=== PATIENT | male | born 1940 | race Caucasian/White ===

== ENCOUNTER 2016-09-16 16:10 | Emergency (ER) | payer MEDICARE, OTHER ==
[~2016-09-16] VITALS: Ht 172.7 cm; Wt 86.3 kg
[~2016-09-16 16:10] MED LIST: /AUGM875TA; No home medications
[2016-09-16] MEDS ORDERED: LIDOCAINE 2% MDV 20 ML VIAL SC ONE (17:15)
--- NOTE | 2016-09-16 17:22 | REP ---
RIGHT 1ST DIGIT: Four views of the right first digit are performed. There is cortical irregularity at the distal aspect of the proximal phalanx. I suspect this represents an old fracture. There is no other evidence of acute fracture or dislocation. There are moderate degenerative changes of the interphalangeal joint. Signed by Porter Abebe MD 09/16/2016 06:00 P
[2016-09-16] MEDS ORDERED: KEFL500C17 PO (18:05)
[2016-09-16 18:11] VITALS: BP 142/81
[2016-09-16] MEDS ORDERED: ADACEL/BOOSTRIX VACCINE (DIPHTH/PERTUSS/ACELL/TETANUS)0.5ML SYR (90715) IM ONE (18:15)
[2016-09-16] MEDS ORDERED: CEPHALEXIN 500 MG CAP PO ONE (18:15)
== END 2016-09-16 18:20 | disposition home or self-care (01) ==
LOC: M ED 16:10
DX: S61.011A Laceration without foreign body of right thumb without damage to nail, initial encounter (principal); W29.0XXA Contact with powered kitchen appliance, initial encounter; Y92.89 Other specified places as the place of occurrence of the external cause; Y93.89 Activity, other specified; Y99.0 Civilian activity done for income or pay; J67.0 Farmer's lung; R51 Headache; M54.9 Dorsalgia, unspecified

== ENCOUNTER → 2017-09-29 | Outpatient (REF) | payer MEDICARE, OTHER ==
[2017-09-29 17:48] LABS: BASO # 0.1 10^3/uL (0.0-0.2); BASO % 0.6 % (0.0-1.0); EOS # 0.3 10^3/uL (0.0-0.50); EOS % 2.8 % (0.0-3.0); HEMATOCRIT 44.8 % (42.0-52.0); HEMOGLOBIN 15.3 g/dl (13.5-17.5); IMMATURE GRANULOCYTE % 0.4 % (0-3.0); LYMPH % 20.8 % (24.0-44.0); MEAN CORPUSCULAR HEMOGLOBIN 30.2 pg (27.0-33.0); MEAN CORPUSCULAR HGB CONC 34.2 g/dl (32.0-36.5); MEAN CORPUSCULAR VOLUME 88.5 fl (80.0-96.0); MONO # 1.2 10^3/uL (0.0-0.8); MONO % 12.6 % (0.0-5.0); NEUTROPHILS # 5.9 10^3/uL (1.8-7.7); NEUTROPHILS % 62.8 % (36.0-66.0); PLATELET COUNT, AUTOMATED 241 10^3/uL (150-450); RED BLOOD COUNT 5.06 10^6/uL (4.30-6.10); RED CELL DISTRIBUTION WIDTH 12.6 % (11.5-14.5); WHITE BLOOD COUNT 9.5 10^3/uL (4.0-10.0)
[2017-09-29 17:59] LABS: ALBUMIN 3.8 GM/DL (3.2-5.2); ALBUMIN/GLOBULIN RATIO 1.15 (1.00-1.93); ALKALINE PHOSPHATASE 45 U/L (45-117); ALT/SGPT 26 U/L (12-78); ANION GAP 8 MEQ/L (8-16); AST/SGOT 30 U/L (7-37); BILIRUBIN,TOTAL 0.5 MG/DL (0.2-1.0); BLOOD UREA NITROGEN 18 MG/DL (7-18); CALCIUM LEVEL 9.2 MG/DL (8.8-10.2); CARBON DIOXIDE LEVEL 26 MEQ/L (21-32); CHLORIDE LEVEL 106 MEQ/L (98-107); CREATININE FOR GFR 0.86 MG/DL (0.70-1.30); GLOMERULAR FILTRATION RATE > 60.0 (>42); GLUCOSE, FASTING 98 MG/DL (70-100); MAGNESIUM LEVEL 2.3 MG/DL (1.8-2.4); PHOSPHORUS LEVEL 2.9 MG/DL (2.5-4.9); POTASSIUM SERUM 4.2 MEQ/L (3.5-5.1); SODIUM LEVEL 140 MEQ/L (136-145); TOTAL PROTEIN 7.1 GM/DL (6.4-8.2)
[2017-09-29 18:48] LABS: ERYTHROCYTE SEDIMENTATION RATE 21 mm/hr (0-20)
== END ==
LOC: M LAB REF 17:16
DX: R25.2 Cramp and spasm (principal)
CPT/HCPCS: 83735

== ENCOUNTER → 2017-10-27 | Outpatient (CLI) | payer MEDICARE, OTHER ==
[2017-10-27 19:26] LABS: ALBUMIN/GLOBULIN RATIO 1.18 (1.00-1.93); ALKALINE PHOSPHATASE 49 U/L (45-117); ALT/SGPT 23 U/L (12-78); ANION GAP 10 MEQ/L (8-16); AST/SGOT 30 U/L (7-37); BILIRUBIN,TOTAL 0.4 MG/DL (0.2-1.0); BLOOD UREA NITROGEN 20 MG/DL (7-18); C REACTIVE PROTEIN QUANTITATIV 1.88 MG/DL (0.00-0.30); CALCIUM LEVEL 9.4 MG/DL (8.8-10.2); CARBON DIOXIDE LEVEL 25 MEQ/L (21-32); CHLORIDE LEVEL 105 MEQ/L (98-107); GLOMERULAR FILTRATION RATE > 60.0 (>42); GLUCOSE, FASTING 77 MG/DL (70-100); POTASSIUM SERUM 4.6 MEQ/L (3.5-5.1); SODIUM LEVEL 140 MEQ/L (136-145); TOTAL PROTEIN 7.4 GM/DL (6.4-8.2)
[2017-10-27 20:09] LABS: BASO # 0.1 10^3/uL (0.0-0.2); BASO % 0.6 % (0.0-1.0); EOS # 0.3 10^3/uL (0.0-0.50); EOS % 3.2 % (0.0-3.0); HEMOGLOBIN 15.2 g/dl (13.5-17.5); IMMATURE GRANULOCYTE % 0.4 % (0-3.0); LYMPH # 2.4 10^3/uL (1.5-4.5); LYMPH % 23.2 % (24.0-44.0); MEAN CORPUSCULAR HEMOGLOBIN 29.3 pg (27.0-33.0); MEAN CORPUSCULAR VOLUME 88.6 fl (80.0-96.0); MONO # 1.4 10^3/uL (0.0-0.8); MONO % 13.8 % (0.0-5.0); NEUTROPHILS # 6.1 10^3/uL (1.8-7.7); NEUTROPHILS % 58.8 % (36.0-66.0); PLATELET COUNT, AUTOMATED 287 10^3/uL (150-450); RED BLOOD COUNT 5.19 10^6/uL (4.30-6.10); RED CELL DISTRIBUTION WIDTH 12.5 % (11.5-14.5); WHITE BLOOD COUNT 10.3 10^3/uL (4.0-10.0)
[2017-10-27 22:17] LABS: ERYTHROCYTE SEDIMENTATION RATE 19 mm/hr (0-20)
== END ==
LOC: M SMT 15:33
DX: M19.012 Primary osteoarthritis, left shoulder (principal); Z79.899 Other long term (current) drug therapy
CPT/HCPCS: 80053

== ENCOUNTER → 2017-12-05 | Outpatient (REF) | payer MEDICARE, OTHER ==
[2017-12-09 13:06] LABS: RHEUMATOID FACTOR QUANT < 10.0 IU/ML (<15.0)
[2017-12-10 16:17] LABS: ANTINUCLEAR ANTIBODIES DIRECT Negative (Negative)
== END ==
LOC: M LAB REF 12:20
DX: M25.50 Pain in unspecified joint (principal); R79.82 Elevated C-reactive protein (CRP)
CPT/HCPCS: 86038

== ENCOUNTER → 2017-12-05 | Outpatient (REF) | payer MEDICARE, OTHER ==
[2017-12-05 17:58] LABS: C REACTIVE PROTEIN QUANTITATIV 1.45 MG/DL (0.00-0.30)
[2017-12-08 00:08] LABS: Lyme Disease IgG/IgM Antibodie <0.91 ISR (0.00-0.90); Lyme Disease IgM Ab Quantitati <0.80 index (0.00-0.79)
== END ==
LOC: M LAB REF 17:06
DX: M25.50 Pain in unspecified joint (principal)
CPT/HCPCS: 86140

== ENCOUNTER 2017-12-12 11:06 | Day surgery (SDC) | payer MEDICARE, OTHER ==
[~2017-12-12 11:06] MED LIST changes: -/AUGM875TA; +MIDAZOLAM INJ 2 MG/2 ML VIAL (J2250) As Ordered; -No home medications; +fentaNYL 100 MCG/2 ML INJECTION (J3010) As Ordered
[2017-12-12] MEDS: LIDOCAINE 3.5 % 1ML OPHTH TOPICAL GEL OU (12:35)
[2017-12-12] MEDS: POVIDONE-IODINE 5% OPHTH PREP SOL 30ML As Ordered (15:28)
[2017-12-12] MEDS: LIDOCAINE 2% W/EPIN INJ 20ML **PRES FREE As Ordered (16:00)
[2017-12-12] MEDS: ERYTHROMYCIN OPHTH OINT As Ordered (16:44)
[2017-12-12] MEDS ORDERED: ACETAMINOPHEN TAB 650MG DOSE (2X325MG) As Ordered (17:03)
[2017-12-12] MEDS: ACETAMINOPHEN TAB 650MG DOSE (2X325MG) PO (17:05)
[2017-12-12] MEDS ORDERED: ONDANSETRON 4MG/2ML VIAL (J2405) IV (17:15)
[2017-12-12] MEDS ORDERED: LR 1,000 ML IV (17:15)
== END 2017-12-12 17:38 | disposition home or self-care (01) ==
LOC: M SDC 11:06
DX: C69.01 Malignant neoplasm of right conjunctiva (principal); K21.9 Gastro-esophageal reflux disease without esophagitis; M15.0 Primary generalized (osteo)arthritis; R51 Headache; R00.0 Tachycardia, unspecified; J67.0 Farmer's lung; Z79.82 Long term (current) use of aspirin; Z96.1 Presence of intraocular lens
CPT/HCPCS: 68115

== ENCOUNTER → 2018-01-16 | Outpatient (REF) | payer MEDICARE, OTHER ==
[2018-01-19 00:30] LABS: CYCLIC CITRULLINATED PEPTIDE 8 units (0-19)
== END ==
LOC: M LAB REF 16:53
DX: M25.50 Pain in unspecified joint (principal)

== ENCOUNTER → 2018-01-16 | Outpatient (CLI) | payer MEDICARE, OTHER | LOC: M WUC 14:49 | DX: M25.742 Osteophyte, left hand (principal); M25.542 Pain in joints of left hand | CPT/HCPCS: 86140 ==

== ENCOUNTER 2018-03-01 14:13 | Inpatient (IN) | payer MEDICARE, OTHER ==
[~2018-03-01] VITALS: Ht 170.2 cm; Wt 76.3 kg
[~2018-03-01 14:13] MED LIST changes: +/AUGM875TA; +ASPI81TA85 PO; +GLUC500C5 PO; +KEFL500C17 PO; +MAGN400C2 PO; -MIDAZOLAM INJ 2 MG/2 ML VIAL (J2250) As Ordered; +MULTCAP PO; +No home medications; +VITA500C24 PO; -fentaNYL 100 MCG/2 ML INJECTION (J3010) As Ordered
[2018-03-01 14:41] LABS: BASO # 0.1 10^3/uL (0.0-0.2); BASO % 0.8 % (0.0-1.0); EOS # 0.3 10^3/uL (0.0-0.50); EOS % 3.3 % (0.0-3.0); HEMATOCRIT 40.2 % (42.0-52.0); HEMOGLOBIN 13.5 g/dl (13.5-17.5); MEAN CORPUSCULAR HEMOGLOBIN 28.1 pg (27.0-33.0); MEAN CORPUSCULAR HGB CONC 33.6 g/dl (32.0-36.5); MEAN CORPUSCULAR VOLUME 83.8 fl (80.0-96.0); MONO # 1.4 10^3/uL (0.0-0.8); MONO % 14.4 % (0.0-5.0); NEUTROPHILS # 5.8 10^3/uL (1.8-7.7); NEUTROPHILS % 60.1 % (36.0-66.0); PLATELET COUNT, AUTOMATED 364 10^3/uL (150-450); WHITE BLOOD COUNT 9.6 10^3/uL (4.0-10.0)
[2018-03-01 15:14] LABS: ALBUMIN 3.4 GM/DL (3.2-5.2); ALT/SGPT 26 U/L (12-78); BILIRUBIN,DIRECT 0.2 MG/DL (0.0-0.2); BILIRUBIN,TOTAL 0.5 MG/DL (0.2-1.0); BLOOD UREA NITROGEN 25 MG/DL (7-18); CALCIUM LEVEL 9.4 MG/DL (8.8-10.2); CARBON DIOXIDE LEVEL 24 MEQ/L (21-32); CHLORIDE LEVEL 105 MEQ/L (98-107); CPK CREATINE PHOSPHOKINASE 39 U/L (39-308); CREATININE FOR GFR 0.93 MG/DL (0.70-1.30); GLOMERULAR FILTRATION RATE > 60.0 (>42); GLUCOSE, FASTING 105 MG/DL (70-100); MB/CK RELATIVE INDEX 3.08 (< OR =4); POTASSIUM SERUM 4.4 MEQ/L (3.5-5.1); SODIUM LEVEL 136 MEQ/L (136-145); TOTAL PROTEIN 7.6 GM/DL (6.4-8.2); TROPONIN I 0.02 NG/ML (< 0.10)
--- NOTE | 2018-03-01 15:18 | REP ---
CT Head without contrast HISTORY: Numbness COMPARISON: None Areas of decreased attenuation are present in the periventricular and subcortical white matter. This represents small-vessel ischemic disease. There is no intraparenchymal hemorrhage, acute infarct, mass or midline shift. The ventricular system and cortical sulci as well as subarachnoid space in the posterior fossa are dilated consistent with moderate volume loss. There is no extra cerebral collection. There is no fracture. The visualized sinuses are clear. IMPRESSION: 1. Small vessel ischemic disease. 2. Moderate volume loss. Electronically Signed by Geo Zambrano MD 03/01/2018 03:09 P
--- NOTE | 2018-03-01 17:52 | REP ---
MRI BRAIN WITHOUT CONTRAST: MRI brain performed with multiple axial images obtained. There is moderate atrophy. There is no midline shift or mass effect. ADC and DWI images demonstrate evidence of an oval acute lacunar infarct in the posterior left thalamus. This measures approximately 9 x 4 mm. No other acute findings are seen. There are patchy periventricular hyperintensities bilaterally compatible with chronic small vessel ischemic changes and gliosis. Brainstem and cerebellum are unremarkable. VII/VIII cranial nerve complexes are grossly unremarkable. Globes are intact. Visualized paranasal sinuses demonstrate no abnormal signal. IMPRESSION: Chronic atrophy and periventricular small vessel ischemic changes and gliosis. Acute lacunar infarct in the posterior left thalamus. Electronically Signed by Porter Abebe MD 03/01/2018 07:58 P
--- NOTE | 2018-03-01 17:56 | REP ---
MRA BRAIN: MRA brain was performed utilizing 3D time of flight imaging with MIP reconstruction images. There is a dominant left vertebral artery. Basilar artery is widely patent with no stenosis. There does appear to be mild to moderate narrowing of the P2 segment of he left posterior cerebral artery. Intracranial carotid vessels are widely patent as are the anterior and middle cerebral arteries bilaterally. The anterior communicating arteries are patent. There is no evidence of aneurysm or AVN. IMPRESSION: Mild to moderate narrowing of the P2 segment of the left posterior cerebral artery. Electronically Signed by Porter Abebe MD 03/01/2018 07:58 P
[2018-03-01] MEDS ORDERED: ASPIRIN 325 MG TAB PO ONE (18:30)
[2018-03-01] MEDS ORDERED: TYLE650T35 PO (18:43)
[2018-03-01] MEDS ORDERED: OMEP20TA PO (18:43)
[2018-03-01] MEDS ORDERED: MAGN250T7 PO (18:43)
[2018-03-01] MEDS ORDERED: GLUC1CAP10 PO (18:43)
[2018-03-01] MEDS ORDERED: ZITHTAB PO (18:43)
[2018-03-01] MEDS ORDERED: NAPR-885 PO (18:43)
[2018-03-01] MEDS ORDERED: ERYT5OPO OD (18:43)
[2018-03-01] MEDS ORDERED: AUGM500T34 PO (18:53)
[2018-03-01 19:06] LABS: INR 1.11; PROTHROMBIN TIME 14.5 SECONDS (12.1-14.4)
--- NOTE | 2018-03-01 20:17 | HPE ---
DATE OF ADMISSION: 03/01/2018 CHIEF COMPLAINT: Right-sided facial numbness, tingling and right arm numbness and tingling. HISTORY OF PRESENT ILLNESS: This is a 78-year-old gentleman with a significant past medical history of arthritis and recent upper respiratory infection (URI) who presents with chief complaint of one day history of right facial numbness and tingling as well as right arm numbness and tingling. Patient reports that yesterday morning when he woke up his entire right side of his face felt extremely numb and tingling and the posterior aspect of his right arm did as well in addition to his right palm. This was a completely new sensation for him. Because he was at home with his disabled , he was not able to come home and had persistent symptoms for several hours, but did not seek medical attention. He finally decided to come to the emergency room to have it further evaluated today. He denies any prior history of myocardial infarction (NH), stroke in the past. He reports he used to be on aspirin but his primary care physician Dr. Sebastian recently stopped it because she started him on other syndrome of nonsteroidal anti-inflammatory drug (NSAID) for arthritic pain and therefore stopped his aspirin. No reported history of diabetes. Patient reports that his symptoms have now resolved and he no longer has any symptoms that he knows of. REVIEW OF SYSTEMS: Negative in 14 out of 14 systems except patient notes that he recently is recovering from a URI and has completing a course of Augmentin. PAST MEDICAL HISTORY: Arthritis. Recent URI, on Augmentin. PAST SURGICAL HISTORY: Tonsillectomy at 7 years old. Right eye surgery, on eye drops. MEDICATIONS: Patient is on: - Tylenol as needed for arthritis - Naprosyn 500 mg twice a day - glucosamine chondroitan 2 capsules daily - magnesium 250 mg daily - Augmentin 500 mg twice a day - vitamin C 1000 mg daily - erythromycin ointment one drop OD three times a day - omeprazole 20 mg by mouth daily ALLERGIES: No known drug allergies. SOCIAL HISTORY: Patient lives with his who is disabled and he takes care of her. 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 No smoking, alcohol or drugs. FAMILY HISTORY: No family history of CVA. Patient's father of cancer at age 87. PHYSICAL EXAMINATION: On exam, patient's blood pressure currently controlled at 133/75. Heart rate of 71. Saturating at 96% on room air. GENERAL: He is in no acute distress and is a very pleasant elderly gentleman. HEENT: Oropharynx clear. Neck supple. Cranial nerves II-XII intact. Smile is symmetric. CARDIOVASCULAR: Regular rate and rhythm. No murmurs, rubs or gallops. LUNGS: Clear to auscultation bilaterally. ABDOMEN: Soft, nontender. Nondistended. Positive bowel sounds. EXTREMITIES: No clubbing, cyanosis or edema. NEUROLOGICAL: Patient is alert and oriented times three. Follows simple commands. No focal neurological deficits. His main muscle testing is 5/5 throughout. His sensation is intact to light touch throughout. He follow simple commands. SKIN: Intact. PSYCHIATRIC: Mood stable. LABS: Reveal CBC is unremarkable with a white count of 9.6, platelets of 364 and hemoglobin of 13.5. Chemistry is unremarkable with a creatinine of 0.93. IMAGING: Reveals a brain MRI that shows chronic atrophy and periventricular small vessel ischemic changes and gliosis. There is an acute lacunar infarct in the posterior left thalamus. Patient also had a head CT that shows small vessel ischemic disease and moderate volume loss. ASSESSMENT AND PLAN: This is a 78-year-old gentleman with history of arthritis, otherwise pretty healthy. He came in with one day history of right-sided facial and arm and palm numbness and tingling. Found to have an acute lacunar infarction in posterior left thalamus. PROBLEMS: 1. Cerebrovascular accident (CVA) secondary to lacunar infarction in the posterior left thalamus. Neurology has been consulted. Patient is being admitted for neurologic workup. He is outside the window for tPA. We are placing him on telemetry and obtaining an echo and carotid ultrasound. Will check a fasting lipid profile in the morning and an A1c. He has being started on a statin with Lipitor 20 mg as well as aspirin 325 mg daily. Physical therapy (PT)/occupational therapy (OT), speech therapy will evaluate the patient. At this time he does not appear to have any neurologic deficits. I will start him on a regular diet as it appears his swallowing function is intact. His blood pressures are currently controlled, but we will allow for permissive hypertension. Neurology will see the patient tomorrow. He will need continuous telemetry and monitoring to evaluate for any atrial fibrillation. 2. History of arthritis. At this time, I am going to hold his NSAIDs and he is continuing on an aspirin 325 daily.
[2018-03-01 20:50] VITALS: BP 127/83
[2018-03-01] MEDS: ATORVASTATIN 20 MG TAB PO SCH (21:27)
[2018-03-01] MEDS: AUGMENTIN 500 MG TAB PO SCH (21:27)
[2018-03-01] MEDS: ERYTHROMYCIN OPHTH OINT OD SCH (21:27)
[2018-03-02] VITALS (7 sets, daily range): BP systolic 99–145; BP diastolic 57–87
--- NOTE | 2018-03-02 02:55 | ECGEPIP ---
Stationary ECG Study [facility] - ED Test Date: 2018-03-01 Pat Name: ROYA MCCAIN Department: Room: - Gender: M Regrinder: TC : 1940 Requested By: Noni Pastrana Order Number: [id number] Reading MD: Jason Brandt Measurements Intervals [place] Rate: 71 P: 18 DE: 245 QRS: -50 QRSD: 147 T: 130 QT: 463 QTc: 505 Interpretive Statements SINUS RHYTHM WITH FIRST DEGREE AV BLOCK LEFT AXIS DEVIATION LEFT BUNDLE BRANCH BLOCK SIMILAR TO 06/19/15 Electronically Signed On 03-02-2018 2:55:17 EST by Jason Brandt
[2018-03-02 06:28] LABS: HEMATOCRIT 39.5 % (42.0-52.0); MEAN CORPUSCULAR HEMOGLOBIN 27.6 pg (27.0-33.0); MEAN CORPUSCULAR HGB CONC 32.9 g/dl (32.0-36.5); MEAN CORPUSCULAR VOLUME 83.9 fl (80.0-96.0); PLATELET COUNT, AUTOMATED 311 10^3/uL (150-450); RED BLOOD COUNT 4.71 10^6/uL (4.30-6.10); WHITE BLOOD COUNT 6.8 10^3/uL (4.0-10.0)
[2018-03-02 06:51] LABS: BLOOD UREA NITROGEN 24 MG/DL (7-18); CALCIUM LEVEL 9.3 MG/DL (8.8-10.2); CARBON DIOXIDE LEVEL 23 MEQ/L (21-32); CHLORIDE LEVEL 107 MEQ/L (98-107); CHOLESTEROL LEVEL 126 MG/DL (<200); CHOLESTEROL RISK RATIO 4.666 (<5); CREATININE FOR GFR 0.78 MG/DL (0.70-1.30); GLOMERULAR FILTRATION RATE > 60.0 (>42); GLUCOSE, FASTING 93 MG/DL (70-100); HDL CHOLESTEROL 27 MG/DL (>40); LDL CHOLESTEROL 76 MG/DL (<100); NON-HDL-C 99 MG/DL; SODIUM LEVEL 138 MEQ/L (136-145); TRIGLYCERIDES LEVEL 115 MG/DL (<150)
--- NOTE | 2018-03-02 07:07 | IPNPDOC ---
Text Note Date of Service The patient was seen on 03/02/18. NOTE SUBJECTIVE: Patient seen and examined at bedside. Complains of bilateral shoulder and hip pain which he attributes to his arthritis. States he neurologic symptoms have improved including his right palm numbness and facial numbness. He also states he tested positive for flu and was receiving treatment. Contacted his pharmacy - [facility] on [address] - no treatment for influenza prescribed, only Augmentin. OBJECTIVE: GENERAL: NAD, lying comfortably in bed HEENT: NC/AT, EOMI, PERRL CARDIOVASCULAR: +S1S2, RRR LUNGS: CTA B/L ABDOMEN: Soft, NT, +BS, ND EXTREMITIES: no edema NEUROLOGICAL: no gross focal deficits PSYCHIATRIC: AAOx3 ASSESSMENT AND PLAN: This is a 78-year-old gentleman with history of arthritis presents for one day history of right-sided facial, right arm and palm numbness and tingling. Found to have an acute lacunar infarction in posterior left thalamus. #CVA - lacunar infarction in the posterior left thalamus - follow as per neuro - assistance appreciated - echo pending report - telemetry - carotid ultrasound WNL - lipid profile, A1C - statin/ASA - PT/OT/ST #dyslipidemia - on statin therapy #glucose intolerance - A1C 6.0 #recent URI - was previously taking Augmentin #arthritis #DVT prophylaxis Addendum: Early evening patient was found to be in VT. Notified by neurology of findings. Labs ordered, transfer to PCU. Patient asymptomatic and VSS. Discussed with patient and , apparently he has history of arrhythmia noted on routine ECG at PCP, and followed up with Dr. Bates. Last visit was December 2017. Discussed with Dr. Ortega, consultation pending. VS,Dustinbone, I+O VS, Fishbone, I+O Laboratory Tests 03/01/18 14:30 Red Blood Count 4.80, Mean Corpuscular Volume 83.8, Mean Corpuscular Hemoglobin 28.1, Mean Corpuscular Hemoglobin Concent 33.6, Red Cell Distribution Width 13.3, Neutrophils (%) (Auto) 60.1, Lymphocytes (%) (Auto) 21.0 L, Monocytes (%) (Auto) 14.4 H, Eosinophils (%) (Auto) 3.3 H, Basophils (%) (Auto) 0.8, Neutrophils # (Auto) 5.8, Lymphocytes # (Auto) 2.0, Monocytes # (Auto) 1.4 H, Eosinophils # (Auto) 0.3, Basophils # (Auto) 0.1 03/02/18 05:42 Red Blood Count 4.71, Mean Corpuscular Volume 83.9, Mean Corpuscular Hemoglobin 27.6, Mean Corpuscular Hemoglobin Concent 32.9, Red Cell Distribution Width 13.3 Vital Signs Date Time Temp Pulse Resp B/P (MAP) Pulse Ox O2 Delivery O2 Flow Rate FiO2 03/02/18 06:00 97.2 64 15 113/60 (77) 100 Room Air I&O- Last 24 Hours up to 6 AM 03/02/18 06:00 Intake Total 300 ml Output Total 275 ml Balance 25 ml TTIO SOTO MD Mar 02, 2018 07:07
--- NOTE | 2018-03-02 08:22 | REP ---
Duplex carotid sonography: History: Thalamic stroke workup. Findings: Antegrade flow was observed in both vertebral arteries. Right carotid: Right common carotid artery is unremarkable on two-dimensional scanning. No significant plaquing is seen in the bulb, proximal ICA or proximal ECA on the right side. Color flow and spectral Doppler interrogation are unremarkable. Velocity chart right carotid: Right CCA PSV 78 cm/s Right ICA PSV 60 EDC 18 Right ECA PSV 53 Right ICA/CCA ratio normal 0.8. Impression: No significant plaquing visible. No evidence of stenosis. Left carotid: The left common carotid artery is unremarkable as well on two-dimensional scanning. There is minimal plaquing in the left carotid bulb. Color flow and spectral Doppler interrogation are unremarkable on the left. Velocity chart left carotid: Left CCA PSV 123 cm/s Left ICA PSV 55 EDC 6 Left ECA PSV 70 Left ICA/CCA ratio normal 0.5. Impression: 0-15% category narrowing in the left ICA. Electronically Signed by Toby Lew MD 03/02/2018 09:30 A
[2018-03-02] MEDS: OMEPRAZOLE 20 MG CAP PO SCH (10:06)
[2018-03-02] MEDS: ASCORBIC ACID 500 MG TAB PO SCH (10:06)
[2018-03-02] MEDS: AUGMENTIN 500 MG TAB PO SCH ×2 (10:06→20:35)
[2018-03-02] MEDS: ASPIRIN 325 MG TAB PO SCH (10:06)
[2018-03-02] MEDS: ERYTHROMYCIN OPHTH OINT OD SCH ×3 (10:07→23:00)
--- NOTE | 2018-03-02 12:27 | NUR ---
Speech and language evaluation conducted at bedside on 03/02/18 secondary to stroke. Based on the results of the assessment, speech and language skills are within functional limits and no further speech therapy is recommended at this time. Addendum: 03/02/18 at 1229 by AQUILES LUZ Amended: Links added.
[2018-03-02 18:18] LABS: BASO # 0.1 10^3/uL (0.0-0.2); BASO % 0.9 % (0.0-1.0); EOS # 0.3 10^3/uL (0.0-0.50); EOS % 3.7 % (0.0-3.0); HEMATOCRIT 44.6 % (42.0-52.0); HEMOGLOBIN 14.8 g/dl (13.5-17.5); LYMPH # 2.2 10^3/uL (1.5-4.5); LYMPH % 25.2 % (24.0-44.0); MEAN CORPUSCULAR HEMOGLOBIN 27.9 pg (27.0-33.0); MEAN CORPUSCULAR HGB CONC 33.2 g/dl (32.0-36.5); MONO # 1.1 10^3/uL (0.0-0.8); MONO % 12.9 % (0.0-5.0); NEUTROPHILS # 4.9 10^3/uL (1.8-7.7); PLATELET COUNT, AUTOMATED 381 10^3/uL (150-450); RED BLOOD COUNT 5.31 10^6/uL (4.30-6.10); WHITE BLOOD COUNT 8.6 10^3/uL (4.0-10.0)
[2018-03-02 18:49] LABS: ALBUMIN 3.4 GM/DL (3.2-5.2); ALT/SGPT 22 U/L (12-78); BILIRUBIN,TOTAL 0.4 MG/DL (0.2-1.0); BLOOD UREA NITROGEN 27 MG/DL (7-18); CALCIUM LEVEL 9.7 MG/DL (8.8-10.2); CARBON DIOXIDE LEVEL 23 MEQ/L (21-32); CHLORIDE LEVEL 104 MEQ/L (98-107); CPK CREATINE PHOSPHOKINASE 58 U/L (39-308); CREATININE FOR GFR 0.93 MG/DL (0.70-1.30); GLOMERULAR FILTRATION RATE > 60.0 (>42); GLUCOSE, FASTING 117 MG/DL (70-100); MAGNESIUM LEVEL 2.2 MG/DL (1.8-2.4); MB/CK RELATIVE INDEX 2.41 (< OR =4); SODIUM LEVEL 135 MEQ/L (136-145); TOTAL PROTEIN 8.1 GM/DL (6.4-8.2); TROPONIN I < 0.02 NG/ML (< 0.10)
[2018-03-02] MEDS ORDERED: ASPIRIN 325 MG TAB PO SCH (19:00)
[2018-03-02] MEDS: ATORVASTATIN 20 MG TAB PO SCH (20:35)
[2018-03-03] VITALS (8 sets, daily range): BP systolic 105–128; BP diastolic 65–77
[2018-03-03 06:41] LABS: BASO # 0.1 10^3/uL (0.0-0.2); EOS # 0.4 10^3/uL (0.0-0.50); HEMATOCRIT 38.3 % (42.0-52.0); HEMOGLOBIN 12.8 g/dl (13.5-17.5); LYMPH # 1.7 10^3/uL (1.5-4.5); LYMPH % 23.6 % (24.0-44.0); MEAN CORPUSCULAR HEMOGLOBIN 27.6 pg (27.0-33.0); MEAN CORPUSCULAR HGB CONC 33.4 g/dl (32.0-36.5); MEAN CORPUSCULAR VOLUME 82.7 fl (80.0-96.0); MONO # 1.1 10^3/uL (0.0-0.8); MONO % 15.8 % (0.0-5.0); NEUTROPHILS # 3.8 10^3/uL (1.8-7.7); NEUTROPHILS % 53.3 % (36.0-66.0); PLATELET COUNT, AUTOMATED 290 10^3/uL (150-450); RED BLOOD COUNT 4.63 10^6/uL (4.30-6.10); WHITE BLOOD COUNT 7.1 10^3/uL (4.0-10.0)
--- NOTE | 2018-03-03 06:41 | CR ---
DATE OF CONSULTATION: 03/02/2018 REFERRING PHYSICIAN: Dr. Farida Chun REASON FOR CONSULTATION: Right-sided facial and arm numbness, tingling. HISTORY PRESENT ILLNESS: Sid Quijano is a 78-year-old man who had a recent upper respiratory tract infection and has history of arthritis. He developed sudden onset of right-sided facial and arm numbness, tingling on February 28, 2018. There was no speech deficit. There was no weakness or imbalance. The patient has noted tremor of his hands for last 5 years. His tremor is worse with activities. He does not have any trouble walking at his baseline. He denies any headaches or neck pain. He has a history of chronic low back pain for many years. He denies dysphagia, dysarthria, diplopia, urinary incontinence, falls or loss of consciousness. The patient recently stopped taking aspirin in January 2018 as he started Tylenol Arthritis for his joint pain. PAST MEDICAL HISTORY: Osteoarthritis. Recent upper respiratory tract infection. Tonsillectomy. Right eye surgery. HOME MEDICATIONS: - Tylenol Arthritis - Augmentin 500 mg p.o. b.i.d. - omeprazole 20 mg p.o. daily - naproxen 500 mg p.o. b.i.d. p.r.n. - magnesium 250 mg p.o. daily - glucosamine chondroitin 2 capsules daily - erythromycin ointment for eye three times a day ALLERGIES: None. SOCIAL HISTORY: The patient lives with his who is disabled. He takes care of her. 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 FAMILY HISTORY: His father of cancer at age 87. REVIEW OF SYSTEMS: All systems were reviewed and found noncontributory except as mentioned history present illness. PHYSICAL EXAMINATION: Temperature 99.0, pulse 69, respiratory rate 18, blood pressure 99/58, 97% saturation on room air. Heart: Regular rate and rhythm. Lungs: Clear to auscultation. Abdomen: Soft, nontender, nondistended. No pedal edema. No musculoskeletal abnormalities. No rash or signs of meningeal irritation. No ataxia of gait. He has bilateral has action and postural tremor. The patient is awake, alert, oriented to place, person and time. Normal speech comprehension and repetition. Extraocular muscles are intact. No facial weakness. Tongue and uvula are midline. Visual munoz are full to confrontation. Recent and distant memory is intact. 5/5 strength in all four extremities. Deep tendon flexes 2+ throughout. Normal sensation throughout. The patient states that his right-sided facial and arm numbness have significantly improved already. Gait is normal. There is no dysmetria or ataxia. DIAGNOSTIC STUDIES: MRI scan of brain showed an acute left thalamic ischemic lacunar stroke. MRA brain showed mild-moderate left [employer] stenosis. Carotid ultrasound showed 0-15% left ICA stenosis and mild atherosclerosis of right internal carotid artery. His echocardiogram is pending. His telemetry showed wide complex tachycardia for 40 minutes today. I requested Dr. Hong to inform his commutator assembler, Dr. Bates. The patient can have sinus tachycardia with left bundle branch block or ventricular tachycardia. ASSESSMENT: 1. Left thalamic acute lacunar ischemic stroke. 2. 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 3. Mild bilateral carotid artery atherosclerosis. 4. Sinus tachycardia with left bundle branch block versus ventricular tachycardia. PLAN: 1. Aspirin 325 mg by mouth daily. 2. Prilosec 20 mg by mouth daily. 3. Dr. Hong will talk to the patient's commutator assembler about his tachycardia. The patient will be moved to PCU for monitoring. 4. Follow with our office in 2-3 weeks after hospital discharge. His HDL is 99 and LDL 76. He may also likely have benign essential tremor. We will discuss medications as outpatient.
[2018-03-03 07:02] LABS: BLOOD UREA NITROGEN 31 MG/DL (7-18); CALCIUM LEVEL 9.4 MG/DL (8.8-10.2); CARBON DIOXIDE LEVEL 24 MEQ/L (21-32); CHLORIDE LEVEL 105 MEQ/L (98-107); CREATININE FOR GFR 0.88 MG/DL (0.70-1.30); GLOMERULAR FILTRATION RATE > 60.0 (>42); GLUCOSE, FASTING 99 MG/DL (70-100); MAGNESIUM LEVEL 2.2 MG/DL (1.8-2.4); PHOSPHORUS LEVEL 3.1 MG/DL (2.5-4.9); POTASSIUM SERUM 4.1 MEQ/L (3.5-5.1); SODIUM LEVEL 138 MEQ/L (136-145)
--- NOTE | 2018-03-03 09:05 | ECHO ---
DATE OF PROCEDURE: 03/02/2018 REFERRING PHYSICIAN: Dr. Salinas INDICATION: Cerebrovascular accident. HEIGHT: 170 cm. WEIGHT: 81 kg. DIMENSIONS: IVS: 1.5 LV: 4.4 LVPW: 1.5 LA: 4.4 Aorta: 4.5 IVC: 1.7 Mitral E wave velocity 74 E prime septal 5.0 E prime lateral 8.4 FINDINGS: This study is of acceptable technical quality even though the apical views were a times, rather limited. The patient is in sinus rhythm with wide QRS complex and first-degree AV block. Left ventricle is of normal size. There is moderate left ventricular hypertrophy. There is segmental wall motion abnormality involving the whole septum and the adjacent apex which are dyskinetic. I suspect this is most likely due to underlying conductive system disease. Overall ejection fraction is going to be mildly reduced, I estimate EF around 45-50%. On some of the views it appears that it may be even worse, but I still believe that 45-50% is about right. Right ventricle appears normal. Left atrium is moderately enlarged. Right atrium was poorly visualized but grossly appears normal. Aortic valve has three cusps, it is sclerotic, but mobility of the cusp is preserved. Mitral and tricuspid valves appear normal. Pulmonic valve was also reasonably well seen and appears normal. No pericardial effusion is noted. Inferior vena cava is normal size. 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 Ascending aorta, aortic arch and abdominal aorta were not well seen. Doppler interrogation of aortic valve reveals no stenosis and approximately mild to moderate insufficiency. Pressure half-time of aortic insufficiency jet was 480 milliseconds. Mitral valve is functionally competent. There is mild tricuspid insufficiency, estimated pulmonary artery pressure is within normal limits. Evaluation of diastolic function is inconclusive as the A-wave velocity of mitral valve inflow was not documented, but I suspect that the patient most likely has a grade 1 diastolic dysfunction. CONCLUSIONS: 1. Study is of acceptable technical quality. 2. Normal LV size with moderate LVH segmental wall motion abnormalities noted above and overall EF around 45-50%. 3. [id number] aortic insufficiency. 4. Normal central venous pressure and probably normal pulmonary artery pressure. COMMENT: SBE prophylaxis is not recommended. Study is most consistent with hypertensive heart disease and I suspect underlying left bundle branch block. Because of dilated aortic root 4.5 cm and poorly visualized remaining segments of the aorta if not already performed or if not known I would recommend to obtain CT scan of the chest to look at the remaining aortic segments. MTDD
[2018-03-03] MEDS: ASCORBIC ACID 500 MG TAB PO SCH (09:24)
[2018-03-03] MEDS: OMEPRAZOLE 20 MG CAP PO SCH (09:24)
[2018-03-03] MEDS: ERYTHROMYCIN OPHTH OINT OD SCH ×3 (09:24→20:03)
[2018-03-03] MEDS: AUGMENTIN 500 MG TAB PO SCH ×2 (09:24→20:03)
[2018-03-03] MEDS: ASPIRIN 325 MG TAB PO SCH (09:24)
--- NOTE | 2018-03-03 12:06 | IPNPDOC ---
Date Seen The patient was seen on 03/03/18. Progress Note SUBJECTIVE: Patient tells me that he still has some mild numbness which is residual from his presentation however for the most part it has resolved he otherwise has no specific complaints was completely asymptomatic during an episode of tachycardia yesterday afternoon. OBJECTIVE: GENERAL: NAD, lying comfortably in bed HEENT: NC/AT, EOMI, PERRL CARDIOVASCULAR: +S1S2, RRR he is not tachycardic at this time LUNGS: CTA B/L ABDOMEN: Soft, NT, +BS, ND EXTREMITIES: no edema NEUROLOGICAL: no gross focal deficits PSYCHIATRIC: AAOx3 ASSESSMENT AND PLAN: This is a 78-year-old gentleman with history of arthritis presents with acute lacunar infarction in posterior left thalamus. #Acute CVA - lacunar infarction in the posterior left thalamus, neurology help greatly appreciated carotid duplex negative he did have an episode of tachycardia rhythm which is unclear to me I'm suspicious for SVT as a possible etiology cardiology consult has been placed will await further recommendations from them especially considering potential need for anticoagulation. For the time being he is on aspirin and statin. He will require outpatient follow up in neurology office in 2-3 weeks. A1c and TSH are unremarkable #dyslipidemia - on statin therapy #recent URI - was previously taking Augmentin will follow PT and OT changes to complete his outpatient course #arthritis stable chronic #DVT prophylaxis Disposition: Pending PT OT cardiology VS, I&O, 24H, Fishbone Vital Signs/I&O Vital Signs Date Time Temp Pulse Resp B/P (MAP) Pulse Ox O2 Delivery O2 Flow Rate FiO2 03/03/18 08:08 97.9 71 18 126/77 (93) 96 Room Air I&O- Last 24 Hours up to 6 AM 03/03/18 06:00 Intake Total 480 ml Output Total 501 ml Balance -21 ml Laboratory Data 24H LABS Laboratory Tests 2 03/02/18 18:11: Immature Granulocyte % (Auto) 0.3, White Blood Count 8.6, Red Blood Count 5.31, Hemoglobin 14.8, Hematocrit 44.6, Mean Corpuscular Volume 84.0, Mean Corpuscular Hemoglobin 27.9, Mean Corpuscular Hemoglobin Concent 33.2, Red Cell Distribution Width 13.4, Platelet Count 381, Neutrophils (%) (Auto) 57.0, Lymphocytes (%) (Auto) 25.2, Monocytes (%) (Auto) 12.9H, Eosinophils (%) (Auto) 3.7H, Basophils (%) (Auto) 0.9, Neutrophils # (Auto) 4.9, Lymphocytes # (Auto) 2.2, Monocytes # (Auto) 1.1H, Eosinophils # (Auto) 0.3, Basophils # (Auto) 0.1, Nucleated Red Blood Cells % (auto) 0.0, Anion Gap 8, Glomerular Filtration Rate > 60.0, Blood Urea Nitrogen 27H, Creatinine 0.93, Sodium Level 135L, Potassium Level 4.0, Chloride Level 104, Carbon Dioxide Level 23, Calcium Level 9.7, Aspartate Amino Transf (AST/SGOT) 36, Alanine Aminotransferase (ALT/SGPT) 22, Total Creatine Kinase 58, Alkaline Phosphatase 121H, Total Bilirubin 0.4, Total Protein 8.1, Albumin 3.4, Magnesium Level 2.2, Creatine Kinase MB 1.0, Creatine Kinase MB Relative Index 2.41, Troponin I < 0.02, Albumin/Globulin Ratio 0.72L 03/03/18 06:27: Immature Granulocyte % (Auto) 0.3, White Blood Count 7.1, Red Blood Count 4.63, Hemoglobin 12.8#L, Hematocrit 38.3L, Mean Corpuscular Volume 82.7, Mean Corpuscular Hemoglobin 27.6, Mean Corpuscular Hemoglobin Concent 33.4, Red Cell Distribution Width 13.3, Platelet Count 290, Neutrophils (%) (Auto) 53.3, Lymphocytes (%) (Auto) 23.6L, Monocytes (%) (Auto) 15.8H, Eosinophils (%) (Auto) 6.0H, Basophils (%) (Auto) 1.0, Neutrophils # (Auto) 3.8, Lymphocytes # (Auto) 1.7, Monocytes # (Auto) 1.1H, Eosinophils # (Auto) 0.4, Basophils # (Auto) 0.1, Nucleated Red Blood Cells % (auto) 0.0, Anion Gap 9, Glomerular Filtration Rate > 60.0, Blood Urea Nitrogen 31H, Creatinine 0.88, Sodium Level 138, Potassium Level 4.1, Chloride Level 105, Carbon Dioxide Level 24, Calcium Level 9.4, Magnesium Level 2.2, Phosphorus Level 3.1 CBC/BMP Laboratory Tests 03/02/18 18:11 Red Blood Count 5.31, Mean Corpuscular Volume 84.0, Mean Corpuscular Hemoglobin 27.9, Mean Corpuscular Hemoglobin Concent 33.2, Red Cell Distribution Width 13.4, Neutrophils (%) (Auto) 57.0, Lymphocytes (%) (Auto) 25.2, Monocytes (%) (Auto) 12.9 H, Eosinophils (%) (Auto) 3.7 H, Basophils (%) (Auto) 0.9, Neutrophils # (Auto) 4.9, Lymphocytes # (Auto) 2.2, Monocytes # (Auto) 1.1 H, Eosinophils # (Auto) 0.3, Basophils # (Auto) 0.1, Calcium Level 9.7, Aspartate Amino Transf (AST/SGOT) 36, Alanine Aminotransferase (ALT/SGPT) 22, Total Creatine Kinase 58, Alkaline Phosphatase 121 H, Total Bilirubin 0.4, Total Protein 8.1, Albumin 3.4 03/03/18 06:27 Red Blood Count 4.63, Mean Corpuscular Volume 82.7, Mean Corpuscular Hemoglobin 27.6, Mean Corpuscular Hemoglobin Concent 33.4, Red Cell Distribution Width 13.3, Neutrophils (%) (Auto) 53.3, Lymphocytes (%) (Auto) 23.6 L, Monocytes (%) (Auto) 15.8 H, Eosinophils (%) (Auto) 6.0 H, Basophils (%) (Auto) 1.0, Neutrophils # (Auto) 3.8, Lymphocytes # (Auto) 1.7, Monocytes # (Auto) 1.1 H, Eosinophils # (Auto) 0.4, Basophils # (Auto) 0.1, Calcium Level 9.4 LYLA CHOU MD Mar 03, 2018 12:06
--- NOTE | 2018-03-03 13:42 | REP ---
CT STUDY OF THE CHEST WITHOUT CONTRAST: HISTORY: Evaluate aortic root for dilation. No comparison chest CT. CT FINDINGS: There is no evidence of pleural or pericardial effusion. Minimal linear fibrotic changes are seen in the lung bases. There is a 6 mm noncalcified pulmonary nodule in the left upper lobe on axial image number 54 of 99 series 204 of today's study. No other pulmonary nodule is seen. No infiltrate is seen. No adrenal lesion is seen. There is vascular calcification including left coronary artery vascular calcification. There is no evidence of thoracic aortic aneurysm. The ascending aortic root measures 3.8 cm in AP dimension at the level of the main pulmonary artery. No hilar or mediastinal adenopathy is seen. No bony destructive lesion is appreciated. IMPRESSION: Atherosclerotic vascular calcification. No thoracic aortic aneurysm seen. There is a 6 mm noncalcified pulmonary nodule in the left upper lobe which merits follow-up. Repeat chest CT study recommended in 6 months. Electronically Signed by Toby Lew MD 03/03/2018 03:15 P
--- NOTE | 2018-03-03 13:42 | REP ---
CT ABDOMEN AND PELVIS WITHOUT IV OR ORAL CONTRAST: HISTORY: Evaluate for abdominal aortic aneurysm. COMPARISON STUDY: May 10, 2009. CT FINDINGS: Preliminary digital structural shop helper radiograph is unremarkable. Bowel gas pattern is normal. The liver and the spleen are normal in size, homogeneous in texture. No adrenal lesion is seen. No pancreatic abnormality is observed. The gallbladder is unremarkable. There is vascular calcification. No intrarenal calculus is seen. The abdominal aorta is tortuous but normal in caliber. No aortic or iliac artery aneurysm is appreciated. There is left colonic diverticulosis without CT evidence of diverticulitis. Small and large bowel loops are otherwise unremarkable. Normal appendix is seen in the right lower quadrant. There is a dextroconvex curvature and degenerative change in the lumbar spine. IMPRESSION: No evidence of abdominal aortic aneurysm. Left colonic diverticulosis. Vascular calcification. Electronically Signed by Toby Lew MD 03/03/2018 03:14 P
[2018-03-03] MEDS: CARVedilol 3.125 MG TAB PO SCH (20:03)
[2018-03-03] MEDS: ATORVASTATIN 20 MG TAB PO SCH (20:03)
--- NOTE | 2018-03-03 21:52 | ECGEPIP ---
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 Electronically Signed On 03-03-2018 21:52:04 EST by Jayjay Gonzalez
--- NOTE | 2018-03-03 22:07 | ECGEPIP ---
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 Electronically Signed On 03-03-2018 22:07:28 EST by Jayjay Gonzalez
[2018-03-04 04:00] VITALS: BP 135/71
[2018-03-04 05:29] LABS: HEMATOCRIT 37.3 % (42.0-52.0); HEMOGLOBIN 12.5 g/dl (13.5-17.5); MEAN CORPUSCULAR HEMOGLOBIN 27.7 pg (27.0-33.0); MEAN CORPUSCULAR HGB CONC 33.5 g/dl (32.0-36.5); MEAN CORPUSCULAR VOLUME 82.5 fl (80.0-96.0); PLATELET COUNT, AUTOMATED 289 10^3/uL (150-450); RED BLOOD COUNT 4.52 10^6/uL (4.30-6.10); WHITE BLOOD COUNT 7.5 10^3/uL (4.0-10.0)
[2018-03-04 05:49] LABS: BLOOD UREA NITROGEN 32 MG/DL (7-18); CALCIUM LEVEL 9.1 MG/DL (8.8-10.2); CARBON DIOXIDE LEVEL 25 MEQ/L (21-32); CHLORIDE LEVEL 106 MEQ/L (98-107); CREATININE FOR GFR 0.87 MG/DL (0.70-1.30); GLOMERULAR FILTRATION RATE > 60.0 (>42); GLUCOSE, FASTING 96 MG/DL (70-100); SODIUM LEVEL 139 MEQ/L (136-145)
[2018-03-04 07:25] VITALS: BP 116/72
--- NOTE | 2018-03-04 08:01 | CR ---
DATE OF CONSULTATION: 03/03/2018 REFERRING PROVIDER: Dr. Geo Hong REASON FOR THE CONSULTATION: Abnormal electrocardiogram (EKG). HISTORY OF PRESENT ILLNESS: 78-year-old male with no prior history of hypertension, hyperlipidemia, or diabetes mellitus developed tingling and numbness in the right upper extremity as well as right side of his face. He came to the emergency room (ER) on 03/02/2018 upon the recommendations of his . Workup in the ER revealed acute lacunar infarct involving the posterior left thalamus. Also noted was chronic atrophy and periventricular small vessel ischemic changes and gliosis. He was seen by neurologist, started on a higher dose of aspirin as well as a statin. While on the floor, he was found to have a wide complex tachycardia and was transferred to progressive care unit (PCU). Cardiology consult was called. When I saw Mr. Sid Quijano in PCU, he was lying supine in bed but in no acute distress, and his as well as one of his sons were at bedside. He denies any chest pain, shortness of breath, palpitations, orthopnea or paroxysmal nocturnal dyspnea (PND). He has been ambulating around the nursing station. He denies any prior history of congestive heart failure, significant valvular heart disease, atrial fibrillation/atrial flutter, cardiomyopathy, sudden cardiac . He denies any prior history of transient ischemic attack (TIA)/cerebrovascular accident (CVA). He stated that he was seen in the office recently and everything was good, in the fall. Echocardiogram done during this hospitalization revealed a mildly depressed global left ventricular systolic function. He has no prior history. He is not sure whether he has had an abnormal EKG in the past. He does have a history of arthritis/osteoarthritis. 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 Medication prior to coming to the hospital: - omeprazole 20 mg by mouth daily - naproxen 500 mg by mouth twice a day as needed - magnesium 250 mg by mouth daily - aspirin 81 mg by mouth daily - glucosamine as needed - erythromycin ointment on the left eye three times a day - He was on Tylenol Arthritis as well as Augmentin 500 mg twice a day. Current medications are: - vitamin C 1000 mg by mouth daily - omeprazole 20 mg by mouth daily - aspirin 325 mg by mouth daily - atorvastatin 20 mg by mouth daily - Augmentin 400 mg by mouth twice a day - erythromycin ointment three times a day left eye Family history is negative for coronary artery disease. SOCIAL HISTORY: Patient lives with his , who is disabled. He does not smoke or drink alcohol. He does have a history of smoking but has stopped many years ago. 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 On physical examination, patient is alert and oriented, in no acute distress and his vital signs when I saw him revealed a blood pressure of 119/74 with a pulse of 88, respirations 16 and his maximum temperature was 97.8 degrees Fahrenheit with an oxygen saturation of 96-99% on room air. Examination of the head: Atraumatic. Neck is supple and no jugular venous distention (JVD) or carotid bruit appreciated. The lungs did not reveal any wheezing or crackles. Heart examination revealed normal S1 and S2 without gallops. The point of maximum impulse (PMI) is slightly displaced inferiorly. There is no rub. I could not appreciate any murmurs. Abdomen is unremarkable. Extremities reveal no pedal edema. Pedal pulses, dorsalis pedis and anterior tibialis were +1 ankle. Neurological examination revealed no focal deficit. LABS: CBC done today revealed a WBC of 7.1, hemoglobin 12.8, hematocrit 38.3, and platelet 290,000. BMP revealed a sodium of 138, potassium 4.1, chloride 105, CO2 24, BUN 31, creatinine 0.88 and GFR more than 60, fasting glucose 99 and calcium 9.4. Liver enzymes on 03/02/2018 revealed an AST of 36, ALT 22, alkaline phosphatase 121, total protein 8.1, albumin 3.4. Serum troponin has been negative, 0.02. Lipid profile on 03/02/2018 revealed a total cholesterol of 126, HDL 27, LDL 76, and triglycerides 115 with a total cholesterol/HDL ratio of 4.67. TSH was 1.17. PT on admission was 14.5 with an INR of 1.11. Head CT on admission, 03/01/2018, revealed small vessel ischemic disease and moderate volume loss. Brain MRI on 03/01/2018 revealed chronic atrophy and periventricular small vessel ischemic changes, gliosis and an acute lacunar infarct in the posterior left thalamus. Carotid Doppler revealed no evidence of hemodynamic significant stenosis, less than 15% stenosis was noted in the left ICA. Chest CT on 03/03/2018 revealed atherosclerotic vascular calcification. No thoracic aortic aneurysm. There was a 6 mm noncalcified pulmonary nodule in the left upper lobe and followup was recommended within 6 [address]. Abdomen and pelvic CT on 03/03/2018 revealed no evidence of abdominal aortic aneurysm but left colonic diverticulosis, vascular calcification. Electrocardiogram on admission revealed normal sinus rhythm with first degree atrioventricular (AV) block, left bundle branch block. Electrocardiogram on 03/03/2018 revealed wide complex tachycardia that could be atrial flutter versus sinus tachycardia, left axis deviation, left bundle branch block. Telemetry were reviewed and were compatible with the EKG except at one point, heart rate was faster. Echocardiogram done on 03/02/2018 revealed a mildly depressed global left ventricular systolic function estimated at 45-50%, mild to moderate aortic regurgitation. IMPRESSION: 1. Abnormal electrocardiogram with underlying left bundle branch block and paroxysmal supraventricular tachycardia with a wide complex QRS that could be atrial flutter with 2:1 AV block, supraventricular tachycardia (SVT) versus sinus tachycardia. 2. Cardiomyopathy with mildly depressed global left ventricular systolic function in the setting of left bundle branch block. 3. Acute left thalamic lacunar ischemic stroke. Mr. Sid Quijano's cardiac condition seems to be stable in nature but in nature of his wide complex tachycardia is not quite clear. In view of his history, one must think about paroxysmal atrial flutter. He was started on a small dose of beta-juan with carvedilol and he will need to be monitored. His baseline rhythm is a left bundle branch block with first degree AV block. He will benefit from an angiotensin-converting enzyme (PRIYANK) inhibitor and in that case, ramipril will be a very good choice for him, and likely to drop his blood pressure. But prior to be started, I will recommend gentle hydration. We will need to determine whether it is atrial flutter or not so will need to determine whether his underlying cardiac arrhythmia is atrial flutter or not in view of his stroke because in that case, he will need anticoagulation therapy. His chart will reviewed in the office and the case will be discussed with Dr. Bates, who has seen him in the past. The above was discussed with the patient as well as his and his son. Prior to leaving the room, his son stated that his father has lost a significant amount of weight recently and no has been. When discharged, his primary physician should be informed for further workup. It was a pleasure to participate in the care of . Sid Quijano for his underlying cardiac condition. We will continue to monitor him along with you while in the hospital. Dr. Bates will be seeing him over the weekend. Please do not hesitate to call if any question.
[2018-03-04] MEDS: OMEPRAZOLE 20 MG CAP PO SCH (08:56)
[2018-03-04] MEDS: ASPIRIN 325 MG TAB PO SCH (08:56)
[2018-03-04] MEDS: CARVedilol 3.125 MG TAB PO SCH ×2 (08:56→20:32)
[2018-03-04] MEDS: AUGMENTIN 500 MG TAB PO SCH ×2 (08:56→20:32)
[2018-03-04] MEDS: ERYTHROMYCIN OPHTH OINT OD SCH ×3 (08:57→20:32)
[2018-03-04] MEDS: ASCORBIC ACID 500 MG TAB PO SCH (08:57)
[2018-03-04 11:49] VITALS: BP 125/67
--- NOTE | 2018-03-04 11:51 | IPNPDOC ---
Date Seen The patient was seen on 03/04/18. Progress Note SUBJECTIVE: Patient feels well has no complaints denies chest pressure shortness of breath palpitations OBJECTIVE: GENERAL: NAD, lying comfortably in bed HEENT: NC/AT, EOMI, PERRL CARDIOVASCULAR: +S1S2, RRR he is not tachycardic at this time LUNGS: CTA B/L ABDOMEN: Soft, NT, +BS, ND EXTREMITIES: no edema NEUROLOGICAL: no gross focal deficits PSYCHIATRIC: AAOx3 ASSESSMENT AND PLAN: This is a 78-year-old gentleman with history of arthritis presents with acute lacunar infarction in posterior left thalamus. #Acute CVA - lacunar infarction in the posterior left thalamus, neurology help greatly appreciated carotid duplex negative he did have an episode of tachycardia rhythm which is unclear to me I'm suspicious for SVT, we'll defer anticoagulation cardiology interpretation is rhythm. For the time being he is on aspirin and statin. He will require outpatient follow up in neurology office in 2-3 weeks. A1c and TSH are unremarkable #dyslipidemia - on statin therapy #recent URI - was previously taking Augmentin, continue to complete his outpatient course #arthritis stable chronic #DVT prophylaxis #Weight loss documented by son reported to Dr. coffey patient denied to me today, close follow-up with his primary care provider to ensure all routine screenings completed Disposition: Pending cardiology VS, I&O, 24H, Sisi Vital Signs/I&O Vital Signs Date Time Temp Pulse Resp B/P (MAP) Pulse Ox O2 Delivery O2 Flow Rate FiO2 03/04/18 08:56 75 116/72 03/04/18 07:25 97.4 18 98 Room Air I&O- Last 24 Hours up to 6 AM 03/04/18 06:00 Intake Total 1050 ml Output Total 900 ml Balance 150 ml Laboratory Data 24H LABS Laboratory Tests 2 03/04/18 04:39: Nucleated Red Blood Cells % (auto) 0.0, Anion Gap 8, Glomerular Filtration Rate > 60.0, Blood Urea Nitrogen 32H, Creatinine 0.87, Sodium Level 139, Potassium Level 4.0, Chloride Level 106, Carbon Dioxide Level 25, Calcium Level 9.1 CBC/BMP Laboratory Tests 03/04/18 04:39 Red Blood Count 4.52, Mean Corpuscular Volume 82.5, Mean Corpuscular Hemoglobin 27.7, Mean Corpuscular Hemoglobin Concent 33.5, Red Cell Distribution Width 13.3, Calcium Level 9.1 LYLA CHOU MD Mar 04, 2018 11:51
[2018-03-04] MEDS ORDERED: AMIODARONE HCL 150 MG in APPROPRIATE DILUENT 1 EA IV STA (13:53)
[2018-03-04] MEDS: APIXABAN 5 MG TAB (ELIQUIS) PO SCH ×2 (14:09→20:32)
--- NOTE | 2018-03-04 14:25 | IPN ---
DATE: 03/04/2018 Mr. Quijano is feeling quite well. His neurologic symptoms have virtually completely resolved. He does not have any chest pain or sensation of palpitations. Review of telemetry monitoring revealed episodes of wide-complex tachycardia. The last one occurred yesterday. Based on review of the strip, I am confident that this actually represents atrial flutter with 2:1 conduction. Vital signs: Blood pressure 125/67, heart rate in 60s to 80s. He is afebrile. Saturation 98% on room air. Fluid balance has been about equal. Weight is 75.9 kg. He is alert and oriented appropriate. His jugular venous pulse (JVP) is not up. Lungs are clear. Heart exam reveals regular rhythm with paroxysmal splitting second heart sound. I do not appreciate murmur, gallop or rub. Abdomen is soft and nontender. Extremities are free of edema. Neurologically, he appears intact. I do not appreciate any deficit. Laboratory vega: CBC is normal but for tiny drop in hemoglobin to 12.5. Basic metabolic panel is normal as well. ASSESSMENT AND PLAN: Mr. Quijano is a 78-year-old man who came with stroke. It was acute thalamic stroke manifesting itself with right upper extremity paresis and also associated sensory deficit. He was found to have episodes of wide-complex tachycardia, which on a review represent atrial flutter or atypical atrial flutter with 2:1 conduction with underlying left bundle branch block, which has been chronic. I think it is very likely that the stroke was only actually consequence of this arrhythmia and because patient had no contraindications we will need to chronically anticoagulate him. I talked to him about the rationale. There is a concern because he had epistaxis as recently as 3 days ago. But he had sinusitis but he has not had any blood in his nasal secretions for at least 3 days. Consequently I think we can start the medication tonight. I spoke with Dr. Salinas and he will get in touch with neurology to make sure they are in agreement, but it has been at least 4 days since the stroke actually occurred and it was not very large so I believe that the risk of hemorrhagic conversion is fairly small. Otherwise, I would continue current management provided he does not have more episodes of flutter and feels well. I believe that he will be able to go home tomorrow. Because I am starting Eliquis I am going to stop aspirin. MTDD
[2018-03-04 15:38] VITALS: BP 111/67
[2018-03-04 20:00] VITALS: BP 147/74
[2018-03-04] MEDS: ATORVASTATIN 20 MG TAB PO SCH (20:32)
[2018-03-04 23:59] VITALS: BP 133/65
[2018-03-05 04:00] VITALS: BP 123/68
[2018-03-05 08:00] VITALS: BP 152/100
[2018-03-05] MEDS: ERYTHROMYCIN OPHTH OINT OD SCH (08:25)
[2018-03-05] MEDS: AUGMENTIN 500 MG TAB PO SCH (08:26)
[2018-03-05] MEDS: ASCORBIC ACID 500 MG TAB PO SCH (08:26)
[2018-03-05] MEDS: APIXABAN 5 MG TAB (ELIQUIS) PO SCH (08:26)
[2018-03-05] MEDS: OMEPRAZOLE 20 MG CAP PO SCH (08:26)
[2018-03-05 08:27] VITALS: BP 152/100
[2018-03-05] MEDS: CARVedilol 3.125 MG TAB PO SCH (08:27)
[2018-03-05 12:00] VITALS: BP 136/76
[2018-03-05] MEDS ORDERED: ACETAMINOPHEN TAB 650MG DOSE (2X325MG) PO PRN (12:00)
[2018-03-05] MEDS ORDERED: ELIQ5TAB PO (12:08)
[2018-03-05] MEDS ORDERED: VOLT1GEL15 TOP (12:08)
[2018-03-05] MEDS ORDERED: Acetaminophen Tab PO (12:08)
[2018-03-05] MEDS ORDERED: CARV6.25 PO (12:08)
[2018-03-05] MEDS ORDERED: ATOR1TAB21 PO (12:08)
[2018-03-05] MEDS ORDERED: LIDO5CRE6 TOP (12:11)
[2018-03-05] MEDS ORDERED: CARVedilol 6.25 MG TAB PO SCH (21:00)
--- NOTE | 2018-03-06 12:03 | DSES ---
DATE OF ADMISSION: 03/01/2018 DATE OF DISCHARGE: 03/05/2018 DISCHARGE DIAGNOSIS: Acute left thalamic infarct. SECONDARY DIAGNOSES: Supraventricular tachycardia (SVT). Thromboembolic disease. Dyslipidemia. Recent upper respiratory tract infection. Arthritis. Weight loss. Deep vein thrombosis (DVT) prophylaxis. HOSPITAL COURSE: The patient is a 78-year-old man who has a history of arthritis, who has previously taken Tylenol Arthritis, however he was discontinued from this in favor of aspirin, who presented with right sided facial numbness as well as right upper extremity paresthesias. He was found to have a left thalamic infarct. He was seen by neurology who started the patient on aspirin and statin, however he was noted to have what was suspected to be SVT and was seen by cardiology in consultation. Given the arrhythmia was felt to be the etiology for his CVA, he was transitioned from aspirin to Eliquis 5 mg twice a day. He did have an echocardiogram completed here which revealed normal LV size, ejection fraction (EF) approximately 45-50%, mild to moderate aortic insufficiency, normal central venous pressures, and there was some concern about dilated aortic root. CT scans did not reveal any significant aortic dilation. SUBJECTIVE: This morning the patient tells me that he feels well. He has some complaints of arthritis on stopping his Tylenol Arthritis, but otherwise, he has no specific complaints. OBJECTIVE: VITAL SIGNS: Temperature 97.5, pulse 78, respiratory rate 18, blood pressure 152/100, oxygen saturation 98% on room air. GENERAL: He is a pleasant elderly, man sitting on the edge of his bed eating breakfast. He does not appear to be in any acute distress. HEENT: Cranial nerves II through XII grossly intact. He does not appear to be in any acute distress. He has moist mucous membranes. No elevation of central venous pressure (CVP). CARDIOVASCULAR EXAM: S1 and S2 regular. RESPIRATORY EXAM: Quite clear. ABDOMINAL EXAM: Benign. EXTREMITIES: No clubbing, cyanosis, or edema. NEUROLOGICAL EXAM: Nonfocal. LABORATORY STUDIES: WBC 7.5, hemoglobin 12.5, platelet count 289. Chemistry panel - sodium 139, potassium 4.0, chloride 106, bicarb 25, BUN 32, creatinine 0.8. IMAGING: The patient did have a CT scan of the head at the time of his admission which revealed small vessel ischemic disease and moderate volume loss. He also had an MRA of the brain that revealed mild to moderate narrowing of the P2 segment in the posterior cerebral artery. He did have an MRI of the brain which revealed chronic atrophy and periventricular small vessel ischemic disease changes and gliosis, acute lacunar infarct int he posterior left thalamus. He subsequently had vascular ultrasound of his carotids that revealed no significant plaquing visible. He did have a CT scan of the chest that revealed a 5 mm noncalcified pulmonary nodule in the left upper lobe which merits follow-up, recommended a repeat CT scan in six months. He also had CT scan of the abdomen and pelvis which revealed no evidence of aortic aneurysm, but he did have colonic diverticulosis and vascular calcifications. ASSESSMENT/PLAN: This is a 78-year-old man who presented with an acute posterior thalamic infarct, found to have SVT. PROBLEMS: 1. Acute post left thalamic infarct and now anticoagulated with Eliquis. He is on a statin. He was examined by physical therapy and occupational therapy and appears to be doing quite well. He does not appear to have any residual deficits and his symptoms are almost completely gone. An echocardiogram was unremarkable as was carotid duplex. I suspect that he may have CVA secondary to SVT. 2. SVT. Dr. Bates's help has been greatly appreciated. He was started on a beta-juan and anticoagulation. Appears to be better controlled at this time. We have spoken with neurology who are in agreement with beginning anticoagulation at this time and holding further aspirin. He will require further outpatient follow-up with post splitter. 3. Osteoarthritis (OA). I have recommended that he taker over the counter Tylenol, but not Tylenol Arthritis and that he must continue taking his anticoagulation. I have provided him with lidocaine cream to help him with his symptoms. As well I have recommended he follow-up with his outpatient provider. 4. Pulmonary nodule and weight loss. He incidentally was found to have a 6 mm pulmonary nodule. It was recommended he have a repeat CT scan in six months. His son provided a history of some recent weight loss, which I recommended he follows up closely with his primary care provider. 5. Recent upper respiratory infection (URI). He has completed several days of antibiotics while in the hospital, which he was started on in the outpatient setting. He appears to be asymptomatic and I will discontinue further antibiotics at this time. 6. Deep vein thrombosis (DVT) prophylaxis. He is anticoagulated with Eliquis. DISPOSITION: The patient is being discharged home. He is independent with his activities of daily living (ADL). He is at his functional baseline. His clinical symptoms have resolved. Follow-up with his primary care physician in seven days. Follow-up with cardiology within two weeks. Follow-up with neurology within two weeks. Activity and diet are as prior to admission. He is to return to the ER if his symptoms worsen. MEDICATIONS AT TIME OF DISCHARGE: - Tylenol 650 mg every 6 hours as needed for pain or fever - Eliquis 5 mg twice a day - atorvastatin 20 mg every evening - carvedilol 6.25 mg twice a day - lidocaine 5% cream topically every 8 hours as needed for pain - vitamin C 1 gram daily - erythromycin ointment one drop right eye three times a day - glucosamine chondroitin two capsules daily - magnesium 250 mg tablet daily - omeprazole 20 mg daily Greater than 30 minutes was spent organizing disposition.
== END 2018-03-05 16:30 | disposition home health service (06) | DRG 65 ==
LOC: M ED 14:13 → M ED INP 19:17 → M MSPAV 20:50 → M PCU 03-02 22:08
PROVIDERS: ADMIT Internal Medicine; ATTEND Internal Medicine
DX: I63.532 Cerebral infarction due to unspecified occlusion or stenosis of left posterior cerebral artery (principal); I48.92 Unspecified atrial flutter; I47.1 Supraventricular tachycardia; M19.90 Unspecified osteoarthritis, unspecified site; R20.0 Anesthesia of skin; E78.5 Hyperlipidemia, unspecified; E74.39 Other disorders of intestinal carbohydrate absorption; I65.23 Occlusion and stenosis of bilateral carotid arteries; I44.0 Atrioventricular block, first degree; I44.7 Left bundle-branch block, unspecified; R63.4 Abnormal weight loss; R91.1 Solitary pulmonary nodule; Z87.891 Personal history of nicotine dependence; Z79.1 Long term (current) use of non-steroidal anti-inflammatories (NSAID); Z79.899 Other long term (current) drug therapy

== ENCOUNTER → 2018-03-08 | Outpatient (REF) | payer MEDICARE, OTHER ==
[~2018-03-08] MED LIST changes: +ATOR1TAB21 PO; +AUGM500T34 PO; +Acetaminophen Tab PO; +CARV6.25 PO; +ELIQ5TAB PO; +ERYT5OPO OD; +GLUC1CAP10 PO; +LIDO5CRE6 TOP; +MAGN250T7 PO; +NAPR-885 PO; +OMEP20TA PO; +TYLE650T35 PO; +VOLT1GEL15 TOP; +ZITHTAB PO
== END ==
LOC: M LAB REF 12:00
PROVIDERS: ATTEND Internal Medicine
DX: M19.90 Unspecified osteoarthritis, unspecified site (principal)

== ENCOUNTER → 2018-07-05 | Outpatient (REF) | payer MEDICARE, OTHER ==
[~2018-07-05] MED LIST changes: +ERYT1OIN26 OD; -ERYT5OPO OD
[2018-07-05 15:53] LABS: BASO # 0.1 10^3/uL (0.0-0.2); BASO % 0.7 % (0.0-1.0); EOS # 0.3 10^3/uL (0.0-0.50); EOS % 3.5 % (0.0-3.0); HEMATOCRIT 42.6 % (42.0-52.0); LYMPH % 27.1 % (24.0-44.0); MEAN CORPUSCULAR HEMOGLOBIN 29.1 pg (27.0-33.0); MEAN CORPUSCULAR HGB CONC 32.9 g/dl (32.0-36.5); MEAN CORPUSCULAR VOLUME 88.6 fl (80.0-96.0); MONO # 0.9 10^3/uL (0.0-0.8); MONO % 12.5 % (0.0-5.0); NEUTROPHILS # 4.1 10^3/uL (1.8-7.7); NEUTROPHILS % 55.9 % (36.0-66.0); PLATELET COUNT, AUTOMATED 194 10^3/uL (150-450); RED BLOOD COUNT 4.81 10^6/uL (4.30-6.10); WHITE BLOOD COUNT 7.4 10^3/uL (4.0-10.0)
[2018-07-05 16:00] LABS: ALBUMIN 3.9 GM/DL (3.2-5.2); ALT/SGPT 26 U/L (12-78); BILIRUBIN,TOTAL 0.5 MG/DL (0.2-1.0); BLOOD UREA NITROGEN 20 MG/DL (7-18); C REACTIVE PROTEIN QUANTITATIV < 0.30 MG/DL (0.00-0.30); CALCIUM LEVEL 9.4 MG/DL (8.8-10.2); CARBON DIOXIDE LEVEL 24 MEQ/L (21-32); CHLORIDE LEVEL 109 MEQ/L (98-107); CREATININE FOR GFR 0.96 MG/DL (0.70-1.30); GLOMERULAR FILTRATION RATE > 60.0 (>42); GLUCOSE, FASTING 130 MG/DL (70-100); SODIUM LEVEL 140 MEQ/L (136-145); TOTAL PROTEIN 6.7 GM/DL (6.4-8.2); URIC ACID 5.4 MG/DL (3.5-7.2)
[2018-07-05 16:35] LABS: ERYTHROCYTE SEDIMENTATION RATE 12 mm/hr (0-20)
== END ==
LOC: M SFHCPLAZ 13:55
PROVIDERS: ATTEND Internal Medicine Rheumatology
DX: M25.519 Pain in unspecified shoulder (principal)
CPT/HCPCS: 36415; 80053; 84550; 85025; 85652; 86140; G0463

== ENCOUNTER → 2018-08-28 | Outpatient (CLI) | payer MEDICARE, OTHER ==
--- NOTE | 2018-08-28 19:33 | REP ---
CT CHEST WITHOUT IV CONTRAST: CT chest was performed without IV contrast. Comparison is made with prior study 03/03/2018. Once again in the left upper lobe there is an oval nodular opacity. It measures approximately 8 x 5 mm. This is stable. No new nodules are seen. There is mild scattered fibrotic change bilaterally. Heart is not enlarged. There is no evidence of axillary or mediastinal adenopathy. Mild scattered atherosclerotic calcification of the thoracic aorta. There is no aneurysm. There is no pleural or pericardial effusion. Visualized upper abdominal structures are unremarkable. There are degenerative changes of the spine. IMPRESSION: Stable nodule left upper lobe 8 x [address] in one year. Electronically Signed by Porter Abebe MD 08/29/2018 11:14 A
== END ==
LOC: M RAD 12:56
PROVIDERS: ATTEND Internal Medicine
DX: R91.1 Solitary pulmonary nodule (principal)

== ENCOUNTER → 2021-03-25 | Outpatient (CLI) | payer MEDICARE, OTHER ==
[~2021-03-25] MED LIST changes: +ACET650T61 PO; -ASPI81TA85 PO; +ASPI81TA86 PO; -ERYT1OIN26 OD; +ERYT5OIN25 OD; +OMEP-358 PO; -OMEP20TA PO; -TYLE650T35 PO
== END ==
LOC: M RAD 10:00
PROVIDERS: ATTEND Internal Medicine
DX: Q25.49 Other congenital malformations of aorta (principal); I35.0 Nonrheumatic aortic (valve) stenosis

== ENCOUNTER 2023-08-31 09:30 | Emergency (ER) | payer MEDICARE, MEDICAID ==
[~2023-08-31] VITALS: Ht 172.7 cm; Wt 72.8 kg
[~2023-08-31 09:30] MED LIST changes: +HYDR-3713 PO; +VALA1TAB5 PO
[2023-08-31] MEDS: ONDANSETRON 4MG 2ML VIAL IV ONE (10:21)
[2023-08-31] MEDS: NS 500 ML IV ONE ×2 (10:22→11:12)
[2023-08-31 10:30] LABS: BASO % 0.3 % (0.0-1.0); EOS % 0.4 % (0.0-3.0); HEMATOCRIT 43.6 % (42.0-52.0); HEMOGLOBIN 14.8 g/dl (13.5-17.5); LYMPH # 1.4 10^3/uL (1.5-5.0); LYMPH % 18.9 % (24.0-44.0); MEAN CORPUSCULAR HEMOGLOBIN 30.5 pg (27.0-33.0); MEAN CORPUSCULAR HGB CONC 33.9 g/dl (32.0-36.5); MEAN CORPUSCULAR VOLUME 89.7 fl (80.0-96.0); MONO # 0.6 10^3/uL (0.0-0.8); MONO % 7.4 % (2.0-8.0); NEUTROPHILS # 5.4 10^3/uL (1.5-8.5); NEUTROPHILS % 72.7 % (36.0-66.0); PLATELET COUNT, AUTOMATED 160 10^3/uL (150-450); RED BLOOD COUNT 4.86 10^6/uL (4.30-6.10); WHITE BLOOD COUNT 7.5 10^3/uL (4.0-10.0)
[2023-08-31 10:56] LABS: CK-MB VALUE MASS 3.1 NG/ML (<3.6); LIPASE 31 U/L (12-53)
[2023-08-31 10:59] LABS: ALBUMIN 4.1 G/DL (3.2-5.2); ALKALINE PHOSPHATASE 59 U/L (46-116); ALT/SGPT 17 U/L (7.0-40); AST/SGOT 40 U/L (<34); BILIRUBIN,TOTAL 1.2 MG/DL (0.3-1.2); BLOOD UREA NITROGEN 19 MG/DL (9-23); CARBON DIOXIDE LEVEL 26 MMOL/L (20-31); CHLORIDE LEVEL 107 MMOL/L (98-107); CREATININE FOR GFR 0.76 MG/DL (0.70-1.30); GLOMERULAR FILTRATION RATE > 60.0 (>35); GLUCOSE, FASTING 114 MG/DL (74-106); POTASSIUM SERUM 3.8 MMOL/L (3.5-5.1); SODIUM LEVEL 140 MMOL/L (136-145); TOTAL PROTEIN 6.9 G/DL (5.7-8.2)
[2023-08-31 11:00] LABS: CPK CREATINE PHOSPHOKINASE 105 U/L (46-171); MB/CK RELATIVE INDEX 2.95 (< OR =4)
[2023-08-31 11:56] LABS: APPEARANCE, URINE MANUAL CLEAR (CLEAR); COLOR, URINE MANUAL YELLOW (YELLOW)
[2023-08-31 11:58] LABS: BILIRUBIN, URINE MANUAL NEGATIVE (NEGATIVE); BLOOD URINE MANUAL NEGATIVE (NEGATIVE); GLUCOSE, URINE (UA) MANUAL NEGATIVE (NEGATIVE); KETONE, URINE MANUAL 2+ mg/dL (NEGATIVE); LEUKOCYTE ESTERASE, URINE MAN NEGATIVE (NEGATIVE); NITRITE, URINE MANUAL NEGATIVE (NEGATIVE); PROTEIN, URINE MANUAL NEGATIVE (NEGATIVE); SPECIFIC GRAVITY,URINE MANUAL 1.016 (1.002-1.035); UROBILINOGEN, URINE MANUAL NORMAL (NORMAL)
[2023-08-31] MEDS ORDERED: ONDA-282 PO (12:45)
[2023-08-31 13:11] VITALS: BP 148/72; TEMP 96.3; O2SAT 98
== END 2023-08-31 13:13 | disposition home or self-care (01) ==
LOC: M ED 09:30
DX: R11.2 Nausea with vomiting, unspecified (principal); K57.90 Diverticulosis of intestine, part unspecified, without perforation or abscess without bleeding; D30.3 Benign neoplasm of bladder; I44.0 Atrioventricular block, first degree; I44.7 Left bundle-branch block, unspecified; Z79.1 Long term (current) use of non-steroidal anti-inflammatories (NSAID); Z79.899 Other long term (current) drug therapy
CPT/HCPCS: 71046; 74176; 80053; 81002; 82550; 82553; 83690; 85025; 93005; 96361; 96374; 99284; J2405

== ENCOUNTER → 2023-09-21 | Outpatient (REF) | payer MEDICARE, MEDICAID ==
[~2023-09-21] MED LIST changes: +ONDA-282 PO
[2023-09-21 18:39] LABS: APPEARANCE, URINE CLEAR (CLEAR); BACTERIA, URINE AUTO NEGATIVE (NEGATIVE); BILIRUBIN, URINE AUTO NEGATIVE (NEGATIVE); BLOOD, URINE BLOOD NEGATIVE (NEGATIVE); COLOR, URINE STRAW (YELLOW); GLUCOSE, URINE (UA) AUTO NEGATIVE (NEGATIVE); KETONE, URINE AUTO NEGATIVE (NEGATIVE); LEUKOCYTE ESTERASE, URINE AUTO NEGATIVE (NEGATIVE); NITRITE, URINE AUTO NEGATIVE (NEGATIVE); PROTEIN, URINE AUTO NEGATIVE (NEGATIVE); RBC, URINE AUTO 1 /HPF (0-3); SPECIFIC GRAVITY URINE AUTO 1.009 (1.002-1.035); SQUAMOUS EPITHELIAL CELL UR AU 0 /HPF (0-6); UROBILINOGEN, URINE AUTO 0.2 mg/dL (0.0-2.0); WBC, URINE AUTO 0 /HPF (0-3)
== END ==
LOC: M SMT 17:27
PROVIDERS: ATTEND Urology
DX: N32.89 Other specified disorders of bladder (principal)

== ENCOUNTER → 2024-05-30 | Outpatient (CLI) | payer MEDICARE, MEDICAID | LOC: M RAD 12:44 | PROVIDERS: ATTEND Chiropractor | DX: M99.01 Segmental and somatic dysfunction of cervical region (principal) ==